=== PATIENT | female | born 1995 | race Caucasian/White ===

== ENCOUNTER 2018-07-30 09:38 | Emergency (ER) | payer OTHER ==
[~2018-07-30] VITALS: Ht 170.2 cm; Wt 67.1 kg
[~2018-07-30 09:38] MED LIST: PRENATAL TABLE1 EAC1 PO
[2018-07-30] MEDS ORDERED: NORFLEX100MG PO (13:46)
[2018-07-30] MEDS ORDERED: KETO10TA2 PO (13:46)
== END 2018-07-30 13:50 | disposition home or self-care (01) ==
LOC: ER 09:38
DX: M54.89 Other dorsalgia (principal)